=== PATIENT | female | born 1960 | race Caucasian/White ===

== ENCOUNTER 2020-11-30 09:10 | Outpatient (CLI) | payer BC | END 2020-11-30 23:59 | disposition home or self-care (01) | LOC: LAB.S 09:10 | PROVIDERS: ATTEND Physician Assistant | DX: R30.0 Dysuria (principal) | CPT/HCPCS: 87086 ==

== ENCOUNTER 2021-03-17 18:45 | Outpatient (CLI) | payer BC ==
--- NOTE | 2021-03-19 16:20 | Ultrasound Report ---
PROCEDURE: Pelvic w/Transvaginal INDICATIONS: PELVIC PAIN TECHNIQUE: Real-time scanning was performed of the pelvic organs, with image documentation. Additional endovagi nal scanning was necessary due to incomplete visualization of the adnexal and endometrial structures by transabdominal scanning. COMPARISON: None. FINDINGS: No pathologic free abdominal or pelvic fluid. Uterus: Uterus is normal in size at 5.0 x 2.1 x 3.0 cm. The endometrium measures 4.7 mm in combined thickness. Ovaries: Are not visualized. IMPRESSION: Unremarkable exam. Reviewed by: rFanchesca Vela MD on 03/19/2021 4:19 PM PDT Approved by: Franchesca Vela MD on 03/19/2021 4:19 PM PDT Station ID: [id number]
== END 2021-03-17 18:46 | disposition home or self-care (01) ==
LOC: DI 18:45
PROVIDERS: ATTEND Family Medicine
DX: R10.2 Pelvic and perineal pain (principal)

== ENCOUNTER 2024-01-22 19:10 | Emergency (ER) | payer BC, OTHER ==
[2024-01-22 19:42] VITALS: BP 128/78; O2SAT 97
== END 2024-01-22 21:38 | disposition left against medical advice (07) ==
LOC: ED 19:10
DX: Z53.21 Procedure and treatment not carried out due to patient leaving prior to being seen by health care provider (principal)

== ENCOUNTER 2024-01-23 09:44 | Emergency (ER) | payer OTHER ==
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
[2024-01-23] MEDS: LIDOCAINE PATCH 4% TOP STA (12:00)
[2024-01-23] MEDS: KETOROLAC 15 MG/ML VIAL IM STA (12:00)
--- NOTE | 2024-01-23 12:31 | XRAY Report ---
PROCEDURE: Lumbar Spine 2-3V INDICATIONS: LOW BACK PAIN TECHNIQUE: 2 views of the lumbar spine were acquired. COMPARISON: None. FINDINGS: Surgical change: None. Bones: 5 [id number] vertebrae are present. Convex left scoliosis, De Souza angle of 30 degrees. Gra de 1 retrolisthesis of L3 on L4. Severe disc height loss at L3-4, L2-3. Moderate disc height loss at remaining levels. Facet arthrosis of L3-S1. No vertebral body compression fractures. No suspicious b wally lesions. Soft tissues: Overlying bowel gas pattern is normal. No suspicious soft tissue calcifications. IMPRESSION: No displaced fracture or traumatic subluxation. Moderate to severe, multilevel degenerative disease and lower lumbar facet arthrosis. Convex left scoliosis. Reviewed by: Stu Armstrong MD on 01/23/2024 12:30 PM PDT Approved by: Stu Armstrong MD on 01/23/2024 12:30 PM PDT Station ID: [id number]
--- NOTE | 2024-01-23 12:31 | XRAY Report ---
PROCEDURE: Thoracic Spine 2V INDICATIONS: reproducible lower lumbar and thoracic pain TECHNIQUE: 2 views of the thoracic spine were acquired. COMPARISON: None. FINDINGS: Bones: No fractures or dislocations. No suspicious bony lesions. 12 pairs of ribs are noted, and a ppear intact where visualized. S-shaped curvature of the spine. Soft tissues: No paravertebral stripe thickening. IMPRESSION: No displaced fracture or traumatic subluxation. Reviewed by: Stu Armstrong MD on 01/23/2024 12:30 PM PDT Approved by: Stu Armstrong MD on 01/23/2024 12:30 PM PDT Station ID: [id number]
[2024-01-23 13:46] VITALS: BP 118/75; O2SAT 97
== END 2024-01-23 13:35 | disposition home or self-care (01) ==
LOC: ED 09:44
DX: M54.41 Lumbago with sciatica, right side (principal); M51.36 Other intervertebral disc degeneration, lumbar region; M41.9 Scoliosis, unspecified
CPT/HCPCS: 72070; 72100; 96372; 99283; 99284; A9270